=== PATIENT | male | born 1945 | race Caucasian/White ===

== ENCOUNTER 2019-04-06 12:21 | Inpatient (IN) | payer OTHER, MEDICARE ==
[~2019-04-06] VITALS: Ht 172.7 cm; Wt 70.8 kg
[~2019-04-06 12:21] MED LIST: AMLO10 PO; ATOR10 PO; BETA.05TO TOP; CALCPOTTC TOP; CHLO25B PO; CHOLECALCIFEROL PO; CLON1 PO; Coumadin5 MG PO; DILT120 PO; ERGO400 PO; Elidel30 GM; FAMC500 PO; FISH1000 PO; HYDACE5 PO; HYOS.125 SL; K-Dur 20 meq T20 MEQ PO; LANOXIN125 MCG PO; LEVSOD25 PO; LOSA50 PO; METO50ER PO; MULVITMIND PO; OMEP20ER PO; PIME1CR TOP; POLY17UD PO; POTA8 PO; SERT50 PO; SIMV10 PO; SKIEMOTC1 TOP; TRAM50 PO; UREATC TOP; [UNRECOGNIZED DRUG - OTHER] TP
[2019-04-06 13:42] LABS: BASOPHILS ABSOLUTE AUTO 0.09 K/mm3 (0.00-0.23); BASOPHILS PERCENT AUTO 1 % (0-2); EOSINOPHILS ABSOLUTE AUTO 0.32 K/mm3 (0.00-0.68); EOSINOPHILS PERCENT AUTO 3 % (0-6); Hematocrit 36.6 % (37.0-53.0); Hemoglobin 12.1 g/dL (13.5-17.5); IMMATURE GRAN ABSOLUTE AUTO 0.09 K/mm3 (0.00-0.10); IMMATURE GRAN PERCENT AUTO 1 % (0-1); LYMPHOCYTES ABSOLUTE AUTO 1.69 K/mm3 (0.84-5.20); LYMPHOCYTES PERCENT AUTO 15 % (21-46); MONOCYTES ABSOLUTE AUTO 1.02 K/mm3 (0.16-1.47); MONOCYTES PERCENT AUTO 9 % (4-13); Mean Corpuscular HGB 30.3 pg (26.0-34.0); Mean Corpuscular HGB Conc 33.1 g/dL (31.5-36.5); Mean Corpuscular Volume 92 fL (80-100); Mean Platelet Volume 10.2 fL (9.1-12.4); NEUTROPHILS ABSOLUTE AUTO 8.03 K/mm3 (1.96-9.15); NEUTROPHILS PERCENT AUTO 72 % (41-73); Platelet Count 314 K/mm3 (150-400); RDW Coefficient Variation 14.6 % (11.7-14.2); RDW Standard Deviation 48.6 fL (35.1-46.3); White Blood Cell Count 11.24 K/mm3 (4.00-11.30)
[2019-04-06 14:03] LABS: Alanine Aminotransfer (ALT/SGP 26 U/L (12-78); Albumin, Blood 3.5 g/dL (3.4-5.0); Albumin/Globulin Ratio 0.9 (0.8-1.8); Alk Phos 56 U/L (50-136); Anion Gap 5 mmol/L (6-16); Aspartate Aminotrans (AST/SGOT 18 U/L (12-37); Bilirubin, Total 0.3 mg/dL (0.1-1.0); Blood Urea Nitrogen 20 mg/dL (8-24); Bun/Creatinine Ratio 25.2 (12.0-20.0); CO2, Blood 28 mmol/L (21-32); Calcium, Blood 8.6 mg/dL (8.5-10.1); Chloride, Blood 105 mmol/L (98-108); Creatinine, Blood 0.79 mg/dL (0.60-1.20); Globulin, Blood 3.7 g/dL (2.2-4.0); Glomerular Filtration Rate >60 (60-); Glucose, Blood 136 mg/dL (70-99); International Normalized Ratio 2.3; Potassium, Blood 3.6 mmol/L (3.5-5.5); Prothrombin Time Results 22.6 Sec (9.7-11.5); Sodium, Blood 138 mmol/L (136-145); Total Protein, Blood 7.2 g/dL (6.4-8.2)
[2019-04-06] MEDS ORDERED: MELA3 PO (15:56)
[2019-04-06] MEDS ORDERED: DULO30 PO (15:57)
[2019-04-06] MEDS ORDERED: COSENTYX P150 MG/1 M SC (15:58)
--- NOTE | 2019-04-06 17:30 | NUR ---
PT ARRIVAL. PT ARRIVED ON UNIT APROX 0730, PT IS A&Ox4 AND NORMALLY IND AT HOME. PT WAS ADMITTED FOR BLOODY STOOLS. PT C/O BEING LIGHTHEADED/DIZZY WITH MOVEMENT, PT ALSO BECOMES PALE AND DIAPHORETIC. PT'S VS STABLE AT ADMIT AT 115/60, HR 83 RR 18. PT DENIES ABD PAIN. DURING ADMIT ASSESSMENT PT STATED HE HAD AN "ACCIDENT" BEDPAN WAS PLACED UNDER PT, PT PASSED 600MLS OF BLOOD W/SOME CLOTS. GI PROVIDER WAS NOTIFIED AND CAME TO SEE THE PT. PT CAN HAVE CLEAR LIQUID DIET AND PROVIDER WILL REASSESS PT'S BLEEDING TOMORROW. PT'S AT THE BEDSIDE. CALL LIGHT IN REACH, BED IS LOCKED AND LOW WILL CONTINUE TO MONITOR UNTIL REPORT IS GIVEN TO ONCOMING RN.
[2019-04-06 21:10] LABS: Hematocrit 26.3 % (37.0-53.0)
--- NOTE | 2019-04-06 22:12 | NUR ---
complained of dizzyness, 45degrees hob bp was 82/48, called dr after lowering hob and making sure comfortable, ordered bolus ns and stat h+h, after 1000 ns lying bp was 111/86, stated he was feeling better and looking forward to going to sleep, legs were feeling better, will continue to monitor and treat as appropriate, denies pain and dizzyness
[2019-04-07 04:27] LABS: BASOPHILS ABSOLUTE AUTO 0.02 K/mm3 (0.00-0.23); BASOPHILS PERCENT AUTO 0 % (0-2); EOSINOPHILS ABSOLUTE AUTO 0.03 K/mm3 (0.00-0.68); EOSINOPHILS PERCENT AUTO 0 % (0-6); IMMATURE GRAN PERCENT AUTO 1 % (0-1); LYMPHOCYTES ABSOLUTE AUTO 1.83 K/mm3 (0.84-5.20); LYMPHOCYTES PERCENT AUTO 23 % (21-46); MONOCYTES ABSOLUTE AUTO 0.71 K/mm3 (0.16-1.47); MONOCYTES PERCENT AUTO 9 % (4-13); Mean Corpuscular HGB 30.4 pg (26.0-34.0); Mean Corpuscular HGB Conc 33.3 g/dL (31.5-36.5); Mean Corpuscular Volume 91 fL (80-100); NEUTROPHILS ABSOLUTE AUTO 5.34 K/mm3 (1.96-9.15); NEUTROPHILS PERCENT AUTO 67 % (41-73); Platelet Count 186 K/mm3 (150-400); RDW Coefficient Variation 14.6 % (11.7-14.2); Red Blood Cell Count 1.84 M/mm3 (4.30-5.90); White Blood Cell Count 8.03 K/mm3 (4.00-11.30)
[2019-04-07 04:32] LABS: Hematocrit 16.8 % (37.0-53.0); Hemoglobin 5.6 g/dL (13.5-17.5)
[2019-04-07 04:38] LABS: International Normalized Ratio 1.71; Prothrombin Time Results 17.3 Sec (9.7-11.5)
[2019-04-07 04:47] LABS: Anion Gap 8 mmol/L (6-16); Blood Urea Nitrogen 24 mg/dL (8-24); Bun/Creatinine Ratio 28.2 (12.0-20.0); CO2, Blood 23 mmol/L (21-32); Calcium, Blood 7.2 mg/dL (8.5-10.1); Chloride, Blood 113 mmol/L (98-108); Creatinine, Blood 0.85 mg/dL (0.60-1.20); Glomerular Filtration Rate >60 (60-); Glucose, Blood 107 mg/dL (70-99); Potassium, Blood 3.6 mmol/L (3.5-5.5); Sodium, Blood 144 mmol/L (136-145)
--- NOTE | 2019-04-07 05:15 | NUR ---
PT ARRIVES TO ICU 4 VIA BED FROM PCU. DENIES N/V, DENIES CP/PRESSURE, DENIES SOB/DYSPNEA, DENIES NUMBNESS/TINGLING, PT IS ALERT AND ORIENTED X 3. SPEAKING IN FULL SENTENCES, LUNGS ARE CLEAR THROUGHOUT, NO INCREASED WORK OF BREATHING IS NOTED AT REST, SATS ARE MAINTAINING HIGH 90S ON ROOM AIR. HRR, PRESSURE 110S SYSTOLIC, PULSES FULL X 4, SKIN IS PALE WARM AND DRY, BRISK CAP REFILL, NO EDEMA IS NOTED. ABD MILDLY DISTENDED, ACTIVE BOWEL TONES X 4, NO TENDERNESS WITH PALPATION, PT REPORTS FEELING PRESSURE "LIKE I HAVE TO FART" OTHERWISE DENIES SYMPTOMS AT THIS TIME.
--- NOTE | 2019-04-07 07:43 | NUR ---
ASSUMED CARE RECEIVED REPORT FROM NIGHT RN. PT IS ALERT AND ORIENTED TO SELF, PLACE, SITUATION AND TIME. HE HAS STABLE VITALS, WITH A MILDLY ELEVATED BP. HE HAS A UNIT OF PRBC INFUSING AT 125ML/HR; WELL 0.9NS AT 200ML/HR. BED LOW AND LOCKED. CALL LIGHT WITHIN REACH.
--- NOTE | 2019-04-07 13:45 | NUR ---
ALONSO IN ROOM DISCUSSING PLAN OF CARE WITH PATIENT, AND EDUCATING PT AND FAMILY REGARDING COLONOSCOPY, AND REASONS WHY PATIENT MAY BE BLEEDING.
[2019-04-07 15:08] LABS: BASOPHILS ABSOLUTE AUTO 0.04 K/mm3 (0.00-0.23); BASOPHILS PERCENT AUTO 1 % (0-2); EOSINOPHILS ABSOLUTE AUTO 0.06 K/mm3 (0.00-0.68); EOSINOPHILS PERCENT AUTO 1 % (0-6); Hematocrit 23.7 % (37.0-53.0); IMMATURE GRAN ABSOLUTE AUTO 0.07 K/mm3 (0.00-0.10); IMMATURE GRAN PERCENT AUTO 1 % (0-1); LYMPHOCYTES ABSOLUTE AUTO 1.58 K/mm3 (0.84-5.20); LYMPHOCYTES PERCENT AUTO 21 % (21-46); MONOCYTES ABSOLUTE AUTO 0.97 K/mm3 (0.16-1.47); MONOCYTES PERCENT AUTO 13 % (4-13); Mean Corpuscular HGB 30.4 pg (26.0-34.0); Mean Corpuscular HGB Conc 33.8 g/dL (31.5-36.5); Mean Corpuscular Volume 90 fL (80-100); Mean Platelet Volume 10.5 fL (9.1-12.4); NEUTROPHILS ABSOLUTE AUTO 4.87 K/mm3 (1.96-9.15); NEUTROPHILS PERCENT AUTO 64 % (41-73); Platelet Count 192 K/mm3 (150-400); RDW Standard Deviation 48.9 fL (35.1-46.3); Red Blood Cell Count 2.63 M/mm3 (4.30-5.90); White Blood Cell Count 7.59 K/mm3 (4.00-11.30)
[2019-04-07 15:32] LABS: Anion Gap 6 mmol/L (6-16); Blood Urea Nitrogen 17 mg/dL (8-24); CO2, Blood 25 mmol/L (21-32); Calcium, Blood 7.6 mg/dL (8.5-10.1); Chloride, Blood 114 mmol/L (98-108); Creatinine, Blood 0.71 mg/dL (0.60-1.20); Glomerular Filtration Rate >60 (60-); Glucose, Blood 99 mg/dL (70-99); Potassium, Blood 3.2 mmol/L (3.5-5.5); Sodium, Blood 145 mmol/L (136-145)
--- NOTE | 2019-04-07 17:37 | NUR ---
Spiritual Care inital note: Per admit trigger, I met with Mr. Stovall to offer spiritual encouragement and prayer. He was bewildered that a senior enterprise architect had been requested. He was pleasantly dismissive. I will remain available.
--- NOTE | 2019-04-07 18:48 | NUR ---
SHIFT SUMMARY PT HAD NO MAJOR EVENTS HAPPEN OVERNIGHT. HE RECEIVED 2 UNITS OF PACKED RBC'S, AND 1 UNIT OF FFP. HIS HGB INCREASED TO 8.0. HE IS ALERT AND ORIENTED X4, BUT CAN BE SLIGHTLY FORGETFUL, BUT THAT ALSO MAY BE RELATED TO HIM BEING [employer] [place]. HE IS CURRENTLY DRINKING 2L OF GOLYTELY (HE WILL DRINK THE REMAINING 2L TOMORROW MORNING). HIS STOOLS ARE VERY DARK RED/BLACK, LIQUID AND JELLY CONSISTENCIES. HE HAD TWO LARGE BM'S TODAY. HE HAS SCD'S ON. VITALS ARE STABLE, HES ON ROOM AIR. COLONOSCOPY IS SCHEDULED FOR TOMORROW AFTERNOON PER DR. GUPTA. BED IS LOW AND LOCKED. CALL LIGHT WITHIN REACH. PT ATE CLEAR LIQUIDS TODAY, AND HAS BEEN VOIDING FINE.
--- NOTE | 2019-04-07 20:55 | NUR ---
DIZZINESS/DIAPHORESIS: PT UP TO BSC X3 SINCE START OF SHIFT C/ TOTAL OF 1700cc LIQUID RED/MAROON STOOL OUT. PT PLACED BACK INTO BED C/ BED ALARM ON. H&H JUST DRAWN.
[2019-04-07 20:56] LABS: Hematocrit 21.8 % (37.0-53.0); Hemoglobin 7.4 g/dL (13.5-17.5)
--- NOTE | 2019-04-07 21:38 | NUR ---
START OF SHIFT: PT FORGETFUL AND GETS SELF UP TO BSC WITHOUT CALL IN RN. PT, THUS FAR, TOLERATED WELL EXCEPT FOR LAST TIME BECAME DIAPHORETIC AND DIZZY. PT VSS. PT DRUNK ALL 2L OF GOLYTELY. H&H DRAWN SHORTLY AFTER AND IS 7.4/21.8. PT PLACED BACK INTO BED C/ BED ALARM ON. PT CURRENTLY LYING ON LEFT SIDE SLEEPING. HR 94, BP 92/54 (64). CALL LIGHT WITHIN REACH (IF PT REMEMBERS TO USE), WILL CONTINUE TO MONITOR.
--- NOTE | 2019-04-07 22:55 | NUR ---
DISORIENTATION: PT AWAKENS WONDERING WHERE HE IS. PT REMAINED AWAKE AND STATED, "I JUST DON'T KNOW WHERE I AM. I'M DISORIENTED". PT REPEATING QUESTIONS, "WHERE'S MY ", "AM I AT THE [facility]?", "WAS MY WITH MY GRANDSON?". PT QUESTIONS ANSWERED AND PT REORIENTED. PT GRADUALLY REMEMBERING THAT IT'S HIS BIRTHDAY BUT NOT RECALLING EVENTS T/O THE DAY. WILL CONTINUE TO REORIENT AND MONITOR.
--- NOTE | 2019-04-08 02:28 | NUR ---
UPDATE: PT AWAKENS BUT IS MORE ORIENTED. PT AWAKENED AT APPRX 0200 AND STATED, "I KNOW WHERE I'M AT", "[facility]. I HAD TO DRINK THAT STUFF AND I'M GOING TO HAVE A GI TOMORROW". PT CURRENTY SLEEPING. VSS.
[2019-04-08 03:30] LABS: Hemoglobin 5.4 g/dL (13.5-17.5)
[2019-04-08 03:31] LABS: Hematocrit 15.7 % (37.0-53.0)
--- NOTE | 2019-04-08 04:05 | NUR ---
CRITICAL VALUE: H&H OF 5.4 & 15.[address] GARCIA. NEW ORDERS TO OBTAIN PT AND INR STAT-CALL C/ RESULTS. ORDER 2u PRBC.
[2019-04-08 04:29] LABS: International Normalized Ratio 2.12
--- NOTE | 2019-04-08 08:30 | NUR ---
ASSUMED CARE / DR GUPTA: REPORT RECEIVED FROM SHIRA Godfrey RN. ASSUMED CARE OF THIS PT AT APPROX 0700. ON ASSESSMENT, THE PT IS A&O. HE REQUESTS TO GET OOB TO USE THE BSC. UPON ATTEMPTING TO SIT PT AT BEDSIDE, COPIOUS AMNTS OF BRIGHT RED LIQUID STL POUR FROM PT's RECTUM. THE PT IS PUT BACK IN BED & CLEANED THOROUGHLY. A RECTAL TUBE HAS BEEN PLACED OUTPUT IS THIN, MORE BLOOD THAN STL. ASSESSMENT CHARTED, HYPOTENSION IMPROVING W/ BLOOD TRANSFUSION ORDERED. CALLS FROM DR GUPTA THIS AM. HE PLANS TO SCOPE THE PT AT 1200 NOW. WOULD LIKE HIM TO CONTINUE WORKING ON [employer] MUCH POSSIBLE UNTIL 0900. NPO AFTER THAT POINT. ALSO STS OKAY TO TRANSFUSE BLOOD PRODUCTS RAPIDLY IN ORDER TO HAVE TRANSFUSIONS COMPLETED BY 1000 FOR F/U LAB DRAW AT 1000. WILL CONTINUE TO MONITOR & UPDATE NEEDED.
[2019-04-08 10:51] LABS: BASOPHILS ABSOLUTE AUTO 0.04 K/mm3 (0.00-0.23); BASOPHILS PERCENT AUTO 1 % (0-2); EOSINOPHILS ABSOLUTE AUTO 0.11 K/mm3 (0.00-0.68); EOSINOPHILS PERCENT AUTO 2 % (0-6); Hematocrit 20.4 % (37.0-53.0); Hemoglobin 6.8 g/dL (13.5-17.5); IMMATURE GRAN ABSOLUTE AUTO 0.09 K/mm3 (0.00-0.10); IMMATURE GRAN PERCENT AUTO 1 % (0-1); LYMPHOCYTES ABSOLUTE AUTO 1.28 K/mm3 (0.84-5.20); LYMPHOCYTES PERCENT AUTO 18 % (21-46); MONOCYTES ABSOLUTE AUTO 0.61 K/mm3 (0.16-1.47); MONOCYTES PERCENT AUTO 8 % (4-13); Mean Corpuscular HGB 29.8 pg (26.0-34.0); Mean Corpuscular HGB Conc 33.3 g/dL (31.5-36.5); Mean Corpuscular Volume 90 fL (80-100); Mean Platelet Volume 10.4 fL (9.1-12.4); NEUTROPHILS ABSOLUTE AUTO 5.15 K/mm3 (1.96-9.15); NEUTROPHILS PERCENT AUTO 71 % (41-73); Platelet Count 116 K/mm3 (150-400); RDW Coefficient Variation 15.9 % (11.7-14.2); Red Blood Cell Count 2.28 M/mm3 (4.30-5.90); White Blood Cell Count 7.28 K/mm3 (4.00-11.30)
--- NOTE | 2019-04-08 11:57 | NUR ---
ENDOSCOPY: DAY SURGERY TEAM AT BEDSIDE TO COMPLETE PROCEDURE. WILL CONTINUE TO MONITOR & ASSIST PRN.
--- NOTE | 2019-04-08 12:11 | NUR ---
04/08/19 1211 Gal Morley History, Chart, Medications and Allergies reviewed before start of procedure.MONITOR INTACT WITH CONTINUOUS PULSE OXIMETRY AND INTERMITTENT BP.3-LEAD EKG REVIEWED WITH PHYSICIAN PRIOR TO START OF PROCEDURE.O2 VIA N/C INTACT THROUGHOUT SEDATION/PROCEDURE. PATIENT DETERMINED TO BE ASA APPROPRIATE FOR PROPOFOL SEDATION PRIOR TO START OF PROCEDURE BY DR. GUPTA.
--- NOTE | 2019-04-08 12:37 | NUR ---
UPDATE: DAY SURGERY TEAM & DR GUPTA REMAIN AT BEDSIDE. PLAN IS NOW TO DO AN UPPER ENDOSCOPY ALSO. PT's HAS BEEN NOTIFIED & PROVIDED CONSENT. WILL CONTINUE TO MONITOR & ASSIST PRN.
[2019-04-08 14:04] LABS: BASOPHILS ABSOLUTE AUTO 0.02 K/mm3 (0.00-0.23); BASOPHILS PERCENT AUTO 0 % (0-2); EOSINOPHILS ABSOLUTE AUTO 0.09 K/mm3 (0.00-0.68); EOSINOPHILS PERCENT AUTO 2 % (0-6); Hematocrit 18.4 % (37.0-53.0); Hemoglobin 6.3 g/dL (13.5-17.5); IMMATURE GRAN ABSOLUTE AUTO 0.06 K/mm3 (0.00-0.10); IMMATURE GRAN PERCENT AUTO 1 % (0-1); LYMPHOCYTES ABSOLUTE AUTO 1.42 K/mm3 (0.84-5.20); LYMPHOCYTES PERCENT AUTO 23 % (21-46); MONOCYTES PERCENT AUTO 10 % (4-13); Mean Corpuscular HGB 30.3 pg (26.0-34.0); Mean Corpuscular HGB Conc 34.2 g/dL (31.5-36.5); Mean Corpuscular Volume 89 fL (80-100); Mean Platelet Volume 10.8 fL (9.1-12.4); NEUTROPHILS ABSOLUTE AUTO 3.93 K/mm3 (1.96-9.15); NEUTROPHILS PERCENT AUTO 64 % (41-73); Platelet Count 108 K/mm3 (150-400); RDW Coefficient Variation 16.3 % (11.7-14.2); RDW Standard Deviation 52.2 fL (35.1-46.3); Red Blood Cell Count 2.08 M/mm3 (4.30-5.90); White Blood Cell Count 6.12 K/mm3 (4.00-11.30)
[2019-04-08 14:26] LABS: Anion Gap 6 mmol/L (6-16); Blood Urea Nitrogen 11 mg/dL (8-24); Bun/Creatinine Ratio 14.7 (12.0-20.0); CO2, Blood 24 mmol/L (21-32); Calcium, Blood 6.8 mg/dL (8.5-10.1); Chloride, Blood 115 mmol/L (98-108); Creatinine, Blood 0.75 mg/dL (0.60-1.20); Glomerular Filtration Rate >60 (60-); Glucose, Blood 107 mg/dL (70-99); Potassium, Blood 3.3 mmol/L (3.5-5.5); Sodium, Blood 145 mmol/L (136-145)
--- NOTE | 2019-04-08 15:05 | NUR ---
DR ORONA: PROVIDER AT BEDSIDE TO SEE PT. STS HE WILL BE GOING TO ELECTRICAL TRANSMISSION ENGINEER IN APPROX 1 HR. PT HAS BEEN CONSENTED & PT's IS AT BEDSIDE DURING THIS TIME. WILL CONTINUE TO MONITOR & UPDATE NEEDED.
--- NOTE | 2019-04-08 17:58 | NUR ---
RETURN FROM [facility] / DR WILD: PT BACK TO ICU-04 FROM [facility] AT APPROX 1710. PT HAS SHEATH IN PLACE TO R FEMORAL ARTERY, PRESSURE BAG ATTACHED & OKAY TO USE PRN FOR ART LINE PER DR ORONA. AREA IS FREE OF BLEEDING, BRUISING OR HEMATOMA FORMATION. SOFT, NONTENDER TO PALPATION & GOOD CAP REFILL TO DISTAL EXTREMITIES/DIGITS. PLAN IS FOR THE PT TO RETURN TO [facility] IN AM IF BLEEDING REOCCURS TONIGHT. CALL TO DR WILD, PT IS HAVING A DIFFICULT TIME LAYING STILL, HE STS HE IS FEELING ANXIOUS & HAS RESTLESS LEGS AT BASELINE. ORDERS FOR ONE TIME DOSE OF PO ATIVAN HAVE BEEN PLACED. WILL CONTINUE TO MONITOR & UPDATE NEEDED.
--- NOTE | 2019-04-08 18:00 | NUR ---
SHIFT SUMMARY: NO ACUTE CHANGES SINCE PRIOR UPDATES. PT REMAINS A&O. HE IS RESTLESS BUT REDIRECTABLE. LS ARE DIM T/O, PT ON RA W/ O2 SATS > 92%. MONITOR SHOWS SR-ST W/ HR 90-120s, PAC/PVCs NOTED W/ INCREASED HR. BP MORE STABLE THIS AFTERNOON W/ LESS HYPOTENSION NOTED. RECTAL TUBE REMAINS PATENT/ DRAINING SMALL AMNTS OF BRIGHT RED LIQUID. PT VOIDS USING URINAL PRN. SKIN OVERALL CDI. R FEMORAL SITE REMAINS WNL, DRESSING CDI. WILL CONTINUE TO MONITOR & REPORT OFF TO ONCOMING RN.
--- NOTE | 2019-04-08 20:00 | NUR ---
ASSUMED CARE OF PT AT 1915. REPORT RECEIVED AT BEDSIDE. RIGHT GROIN FEMORAL ACCESS SITE WITH SHEATH CHECKED AND VERIFIED. NO HEMATOMA OR OOZING NOTED AT SITE. PT ALERT AND ORIENTED, ALTHOUGH DEMONSTRATES A VERY SHORT TERM MEMORY DEFICIT. NEEDS TO BE REMINDED NOT TO MOVE ABOUT IN BED, AND TO KEEP HIS RIGHT LOWER EXTREMITY STRAIGHT AND TO NOT LIF HI HEAD OFF BED. EXPLANATION TO PATIENT AND TO PT'S ON RESTRICTION SECONDARY TO RIGHT GROIN SITE. PT HAS COMPLETED PRBC'S TRANSFUSION. WILL RECEIVE ADDITIONAL UNIT. WILL REVIEW CHART AND PLAN OF CARE FOR THIS PT.
--- NOTE | 2019-04-08 22:30 | NUR ---
POWERGLIDE PLACED TO LEFT UPPER ARM. 18G/8CM. PT TOLERATES THIS WELL. HAVE OPTED TO PLACE SOFT RESTRAINT TO LOWER RIGHT EXTREMITY TO HELP PT REMEMBER TO KEEP LEG STRAIGHT. PT DOES FORGET RESTRICTIONS AND TRIES TO TURN HIMSELF IN BED. PT NEED FREQUENT MONITORING TO HELP AVOID ANY COMPLICATIONS OF FEMORAL ACCESS. WILL CONTINUE TO MONITOR.
--- NOTE | 2019-04-09 02:00 | NUR ---
PT NEEDED TO HAVE NICOLAS VEST PLACED SECONDARY TO PT SITTING UP IN BED, AND TRYING TO TURN HIMSELF OFTEN. FREQUENT REMINDERS OF FEMORAL SHEATH AND NECESSARY RESTRICTIONS HAVE BEEN DONE AND UNSUCCESSFUL. PT STILL NEEDING CLOSE MONITORING. SEVERAL INTERESTING OBSERVATIONS. WHEN PT ASLEEP, HE RHYTHMICALLY WILL PULL HIS RIGHT LEG UPWARDS, BENDING AT THE KNEE. THIS AT APPROX 15 SECOND INTERVALS. RIGHT GROIN SITE REMAINS INTACT WITHOUT BLEEDING OR HEMATOMA. ALSO, WHEN PT ASLEEP IT WAS OBSERVED THAT PT HAD A SLEEP APNEIC TYPE RESPIRATORY PATTERN. HIS 02 SATURATIONS WOULD DIP INTO MID 80 %'S. DURING THIS, PT WOULD AWAKEN, AND WAS FORGETFUL OF WHERE HE WAS, AND RESTRICTIONS. ORDER RECEIVED FOR CPAP. WHILE WEARING CPAP PT WAS ABLE TO SLEEP WITHOUT BEING AWAKEN FREQUENTLY DURING APNEIC PERIOD. WILL CONTINUE TO MONITOR.
[2019-04-09 03:49] LABS: BASOPHILS ABSOLUTE AUTO 0.05 K/mm3 (0.00-0.23); BASOPHILS PERCENT AUTO 1 % (0-2); EOSINOPHILS ABSOLUTE AUTO 0.44 K/mm3 (0.00-0.68); EOSINOPHILS PERCENT AUTO 6 % (0-6); Hematocrit 23.3 % (37.0-53.0); Hemoglobin 7.9 g/dL (13.5-17.5); IMMATURE GRAN ABSOLUTE AUTO 0.06 K/mm3 (0.00-0.10); IMMATURE GRAN PERCENT AUTO 1 % (0-1); LYMPHOCYTES ABSOLUTE AUTO 1.77 K/mm3 (0.84-5.20); LYMPHOCYTES PERCENT AUTO 24 % (21-46); MONOCYTES PERCENT AUTO 11 % (4-13); Mean Corpuscular HGB 30.2 pg (26.0-34.0); Mean Corpuscular HGB Conc 33.9 g/dL (31.5-36.5); Mean Corpuscular Volume 89 fL (80-100); Mean Platelet Volume 10.6 fL (9.1-12.4); NEUTROPHILS ABSOLUTE AUTO 4.26 K/mm3 (1.96-9.15); NEUTROPHILS PERCENT AUTO 58 % (41-73); Platelet Count 107 K/mm3 (150-400); RDW Coefficient Variation 15.8 % (11.7-14.2); RDW Standard Deviation 50.2 fL (35.1-46.3); Red Blood Cell Count 2.62 M/mm3 (4.30-5.90); White Blood Cell Count 7.38 K/mm3 (4.00-11.30)
[2019-04-09 04:11] LABS: Anion Gap 5 mmol/L (6-16); Blood Urea Nitrogen 9 mg/dL (8-24); Bun/Creatinine Ratio 11.1 (12.0-20.0); CO2, Blood 26 mmol/L (21-32); Chloride, Blood 114 mmol/L (98-108); Creatinine, Blood 0.81 mg/dL (0.60-1.20); Glomerular Filtration Rate >60 (60-); Glucose, Blood 94 mg/dL (70-99); Potassium, Blood 3.3 mmol/L (3.5-5.5); Sodium, Blood 145 mmol/L (136-145)
--- NOTE | 2019-04-09 07:45 | NUR ---
INITIAL ASSESSMENT PATIENT ALERT AND ORIENTED EXCEPT TO PLACE AND WHY HE IS HERE. PATIENT FORGETFUL AT TIMES. PATIENT WEAK BUT ABLE TO MOVE ALL EXTREMITIES. SHEATH IN PLACE TO R FEMORAL SITE. SITE APPEARS WNL- NO BLEEDING, BRUISING, HEMATOMA NOTED. PATIENT HAS TO BE REMINDED THAT HE CANNOT MOVE HIS R LEG. PATIENT DENIES PAIN. PATIENT AFEBRILE. PATIENT SATTING 90% AND GREATER ON RA. LUNGS CLEAR IN UPPER LOBES AND DIMINISHED IN LOWER LOBES. PATIENT DENIES COUGH. PATIENT IN SR WITH PACS. HR 70S TO 90S. BP STABLE. PULSES STRONG. ABDOMEN MILDLY DISTENDED, SOFT, NONTENDER, WITH HYPERACTIVE BS. NOC SHIFT REPORTED NO STOOL OUT LAST NIGHT. WNL. IVS FLUSHED AND SALINE LOCKED. BED LOW, CALL LIGHT IN REACH. WILL CONTINUE TO MONITOR PATIENT FREQUENTLY THROUGHOUT SHIFT.
--- NOTE | 2019-04-09 08:09 | NUR ---
DR. GUPTA IN TO SEE PATIENT.
--- NOTE | 2019-04-09 08:45 | NUR ---
UPDATED DR. ORONA ON PATIENT STATUS. INFORMED THAT PATIENT HAD NO BLEEDING OVERNIGHT. STATED TO PULL THE SHEATH. STATED NO LABS ARE NEEDED PRIOR TO PULLING. NO OTHER ORDERS OBTAINED AT THIS TIME.
--- NOTE | 2019-04-09 10:17 | NUR ---
SHEATH REMOVED WITH STERILE PROCEDURE AT 0945. PATIENT PRE-MEDICATED WITH PRN FENTANYL. DEANNE DRESSING PLACED AND MANUAL PRESSURE APPLIED FOR 20 MINUTES. SITE SOFT, NO BLEEDING, BRUISING, HEMATOMA NOTED. TEGADERM APPLIED. VITAL SIGNS REMAIN STABLE. NO PATIENT COMPLAINTS AT THIS TIME. WILL CONTINUE TO MONITOR.
--- NOTE | 2019-04-09 10:55 | NUR ---
UPDATED DR. WILD ON PATIENT STATUS. INFORMED THAT PATIENT WAS HAVING PERIODS OF SLEEP APNEA AND DESATTING DOWN TO THE LOW 80S PER NOC SHIFT RN AND WAS PLACED ON CPAP. INFORMED THAT WHEN PATIENT IS AWAKE THAT HE IS SATTING 90% AND GREATER ON RA. PATIENT WOULD TAKE CPAP OFF AFTER A WHILE AND THEN BE REMINDED THAT HE NEEDED TO WEAR IN AGAIN. INFORMED THAT HEMOGLOBIN 7.9 BUT MUCH IMPROVED FROM YESTERDAY. INFORMED THAT POTASSIUM 3.3 BUT THAT HE RECEIVED 20 MEQ KDUR THIS AM. NO ORDERS GIVEN TO NURSE AT THIS TIME.
--- NOTE | 2019-04-09 12:04 | NUR ---
PATIENT RESTING QUIETLY IN BED, CHATTING WITH VISITORS. NO COMPLAINTS. PATIENT AFEBRILE. VITAL SIGNS STABLE. GROIN SITE STABLE- SITE SOFT, NO BLEEDING, BRUISING, HEMATOMA NOTED. BLOOD SUGAR OF 101- NO COVERAGE NEEDED. NO RECTAL BLEEDING NOTED. PATIENT ENCOURAGED TO DRINK ENSURE OFF OF LUNCH TRAY. PATIENT STATED THAT HE DOES NOT HAVE MUCH OF AN APPETITE WHEN HE IS IN THE HOSPITAL. NO OTHER ACUTE CHANGES TO NOTE ON AT THIS TIME. WILL CONTINUE TO MONITOR.
[2019-04-09 13:32] LABS: BASOPHILS ABSOLUTE AUTO 0.03 K/mm3 (0.00-0.23); BASOPHILS PERCENT AUTO 0 % (0-2); EOSINOPHILS ABSOLUTE AUTO 0.46 K/mm3 (0.00-0.68); EOSINOPHILS PERCENT AUTO 7 % (0-6); Hematocrit 23.5 % (37.0-53.0); IMMATURE GRAN ABSOLUTE AUTO 0.08 K/mm3 (0.00-0.10); IMMATURE GRAN PERCENT AUTO 1 % (0-1); LYMPHOCYTES PERCENT AUTO 19 % (21-46); MONOCYTES ABSOLUTE AUTO 0.79 K/mm3 (0.16-1.47); MONOCYTES PERCENT AUTO 12 % (4-13); Mean Corpuscular HGB 29.6 pg (26.0-34.0); Mean Corpuscular Volume 87 fL (80-100); Mean Platelet Volume 10.8 fL (9.1-12.4); NEUTROPHILS ABSOLUTE AUTO 4.09 K/mm3 (1.96-9.15); NEUTROPHILS PERCENT AUTO 61 % (41-73); Platelet Count 125 K/mm3 (150-400); RDW Coefficient Variation 15.9 % (11.7-14.2); RDW Standard Deviation 49.1 fL (35.1-46.3); White Blood Cell Count 6.75 K/mm3 (4.00-11.30)
--- NOTE | 2019-04-09 13:54 | NUR ---
OCCUPATIONAL THERAPY IN WORKING WITH PATIENT.
[2019-04-09 13:58] LABS: International Normalized Ratio 1.57
[2019-04-09 14:00] LABS: Anion Gap 8 mmol/L (6-16); Blood Urea Nitrogen 9 mg/dL (8-24); Bun/Creatinine Ratio 13.3 (12.0-20.0); CO2, Blood 23 mmol/L (21-32); Calcium, Blood 7.5 mg/dL (8.5-10.1); Chloride, Blood 111 mmol/L (98-108); Creatinine, Blood 0.68 mg/dL (0.60-1.20); Glomerular Filtration Rate >60 (60-); Glucose, Blood 171 mg/dL (70-99); Potassium, Blood 3.6 mmol/L (3.5-5.5); Sodium, Blood 142 mmol/L (136-145)
--- NOTE | 2019-04-09 16:11 | NUR ---
PATIENT RESTING QUIETLY IN CHAIR. NO COMPLAINTS. AFEBRILE. VITAL SIGNS STABLE. GROIN SITE REMAINS STABLE- SOFT TO PALPATION, NO BLEEDING, BRUISING, HEMATOMA NOTED. BS OF 86. PATIENT HAS NO COMPLAINTS AT THIS TIME. NO OTHER ACUTE CHANGES TO NOTE ON. WILL CONTINUE TO MONITOR.
--- NOTE | 2019-04-09 16:55 | NUR ---
PATIENT HAD MEDIUM AMOUNT OF BRIGHT RED BLOOD LEAK OUT FROM RECTUM, AROUND RECTAL TUBE. DR. WILD CALLED AND INFORMED. STATED TO ORDER H&H FOR IN [address] TO CALL DR[address] GUPTA AND LET HIM KNOW. DR. GUPTA CALLED AND INFORMED. STATED THAT PATIENT HAD LEFTOVER BLOOD IN COLON, SO COULD JUST BE WHAT WAS LEFT. STATED TO MONITOR BP AND CONTINUE TO ASSESS FOR ONGOING RECTAL BLEEDING. 6 TO 8 CC OF WATER INSTILLED INTO RECTAL TUBE TO TRY AND HELP WITH LEAKING. INFORMED. PATIENT CLEANED UP AND BACK IN BED. WILL CONTINUE TO MONITOR.
--- NOTE | 2019-04-09 18:25 | NUR ---
SHIFT SUMMARY PATIENT REMAINED MOSTLY ALERT AND ORIENTED. FORGETFUL AT TIMES. PATIENT HAD NO COMPLAINTS OF PAIN. PATIENT REMAINED AFEBRILE. PATIENT REMAINED WEAK BUT ABLE TO MOVE ALL EXTREMITIES. PATIENT REMAINED SATTING 90% AND GREATER ON RA. PATIENT REMAINED IN SR WITH PACS, HR 70S TO 90S. BP REMAINED STABLE. ABDOMEN REMAINED MILDLY DISTENDED, NONTENDER, SOFT, WITH HYPERACTIVE BS. RECTAL TUBE DC'D THIS SHIFT CONTINUED TO LEAK. DEFLATING RECTAL CUFF, 450 MLS OF BRIGHT BLOOD FLOWED INTO RECTAL TUBE. IN ADDITION, PATIENT HAD A MEDIUM AND THEN A LARGE INCONTINENT BRIGHT RED, LIQUID STOOL. DR. WILD AND DR. GUPTA INFORMED. STATED TO CHECK AN H&H 6 HOURS FROM FIRST BLEED AND CONTINUE TO MONITOR BP AND FOR CONTINUING BLEEDING. DR. GUPTA STATED THAT THERE WAS QUITE A BIT OF BLOOD REMAINING IN COLON ON PREVIOUS IMAGE. PATIENT HAD POOR APPETITE BUT STATES THAT HE DOES WHENEVER HE IS IN THE HOSPITAL. WNL. PATIENT BEING ASSISTED WITH USE OF URINAL. R FEM SHEATH REMOVED THIS SHIFT. SITE REMAINS WNL- SOFT TO PALPATION, NO BLEEDING, BRUISING, HEMATOMA NOTED. IVS SALINE LOCKED. PT/OT WORKED WITH PATIENT TODAY. PATIENT RECEIVED 40 MEQ OF KCL THIS AM FOR POTASSIUM LEVEL OF 3.3. PATIENT HAS NO COMPLAINTS OF THIS TIME. BED LOW, CALL LIGHT IN REACH. REPORT WILL BE GIVEN TO ONCOMING SUPERVISOR DIAGNOSTIC NURSE SHORTLY.
[2019-04-09 23:07] LABS: Hematocrit 19.3 % (37.0-53.0); Hemoglobin 6.6 g/dL (13.5-17.5)
[2019-04-10 04:14] LABS: BASOPHILS ABSOLUTE AUTO 0.04 K/mm3 (0.00-0.23); BASOPHILS PERCENT AUTO 1 % (0-2); EOSINOPHILS ABSOLUTE AUTO 0.58 K/mm3 (0.00-0.68); EOSINOPHILS PERCENT AUTO 7 % (0-6); Hematocrit 23.5 % (37.0-53.0); Hemoglobin 8.2 g/dL (13.5-17.5); IMMATURE GRAN ABSOLUTE AUTO 0.15 K/mm3 (0.00-0.10); IMMATURE GRAN PERCENT AUTO 2 % (0-1); LYMPHOCYTES ABSOLUTE AUTO 2.13 K/mm3 (0.84-5.20); LYMPHOCYTES PERCENT AUTO 26 % (21-46); MONOCYTES ABSOLUTE AUTO 0.93 K/mm3 (0.16-1.47); MONOCYTES PERCENT AUTO 11 % (4-13); Mean Corpuscular HGB 30.8 pg (26.0-34.0); Mean Corpuscular HGB Conc 34.9 g/dL (31.5-36.5); Mean Corpuscular Volume 88 fL (80-100); NEUTROPHILS ABSOLUTE AUTO 4.48 K/mm3 (1.96-9.15); NEUTROPHILS PERCENT AUTO 54 % (41-73); RDW Coefficient Variation 15.2 % (11.7-14.2); RDW Standard Deviation 48.3 fL (35.1-46.3); Red Blood Cell Count 2.66 M/mm3 (4.30-5.90); White Blood Cell Count 8.31 K/mm3 (4.00-11.30)
[2019-04-10 04:23] LABS: Mean Platelet Volume 11.1 fL (9.1-12.4); Platelet Count 92 K/mm3 (150-400)
[2019-04-10 04:32] LABS: Anion Gap 5 mmol/L (6-16); Blood Urea Nitrogen 11 mg/dL (8-24); Bun/Creatinine Ratio 11.9 (12.0-20.0); CO2, Blood 25 mmol/L (21-32); Calcium, Blood 7.4 mg/dL (8.5-10.1); Chloride, Blood 113 mmol/L (98-108); Creatinine, Blood 0.93 mg/dL (0.60-1.20); Glomerular Filtration Rate >60 (60-); Glucose, Blood 89 mg/dL (70-99); Potassium, Blood 3.5 mmol/L (3.5-5.5); Sodium, Blood 143 mmol/L (136-145)
--- NOTE | 2019-04-10 05:51 | NUR ---
SHIFT SUMMARY PT DID NOT SLEEP WELL DESPITE MELATONIN, X2 CUPS OF CAMOMILE TEA. WILL ASK DAY SHIFT FOR PRN SLEEP AID. HGB CAME BACK 8.2 THIS AM AFTER X1 UNIT GIVEN AROUND MIDNIGHT TONIGHT. ONLY 150 ML DARK RED LIQUID STOOL NOTED IN LAST 12 HOURS. PT . DOES COMPLAIN OF CONSTANT RUMBLING STOMACH, DENIES PAIN, NAUSEA, ANY DISCOMORT, ONLY INCREASED MOTILITY. VSS. NO COMPLAINTS OF PAIN. WILL CONTINUE TO MONITOR.
--- NOTE | 2019-04-10 08:30 | NUR ---
ASSESSMENT- PT AWAKE, ALERT, COOPERATIVE. CONFUSED REGARDING REASON FOR HOSPITALIZATION-STATES DOESN'T UNDERSTAND TESTS THAT HAVE BEEN DONE. EXPLAINED PLAN OF CARE, QUESTIONS ANSWERED. EMOTIONAL REASSURANCE GIVEN FOR ANXIOUSNESS. ASSISTED TO BEDSIDE COMMODE, STATES SLIGHT DIZZINESS WITH MOVEMENT, TOLERATED WELL. NSR WITH PACS. BP STABLE. COLOR NORMAL, SKIN W/D. PASSED LIQUID MAROON STOOL-ESTIMATED 50 CC. AM CARE DONE, BRUSHED OWN TEETH. STATES NO NAUSEA BUT NO APPETITE FOR DAYS. LEFT UPPER ARM POWER GLIDE DI, RIGHT HAND IV DI. HANDS SWOLLEN. VOIDING PER URINAL. ABLE TO USE CALL LIGHT. FALL PRECAUTIONS. VISITOR AT BEDSIDE. DR GUPTA CALLED-UPDATED. PLANS FOR NUCLEAR MED STUDY TODAY. PER NUC MED-ESTIMATED TIME 1430. NO PREP FOR TEST
--- NOTE | 2019-04-10 10:10 | NUR ---
HAS BEEN VISITING WITH FAMILY, UP TO AMBULATE AROUND BED AND TO CHAIR WITH THERAPIST. TOLERATED WELL. HR BRIEFLY UP TO 110'S WITH ACTIVITY, THEN 80'S. NEEDS FREQUENT REMINDERS OF PLAN OF CARE. VSS
--- NOTE | 2019-04-10 11:38 | NUR ---
PT SITTING UP IN CHAIR, VSS. NO S/S BLEEDING. AWAITING GI STUDY. FAMILY AT BEDSIDE
[2019-04-10 13:17] LABS: BASOPHILS ABSOLUTE AUTO 0.04 K/mm3 (0.00-0.23); BASOPHILS PERCENT AUTO 1 % (0-2); EOSINOPHILS ABSOLUTE AUTO 0.46 K/mm3 (0.00-0.68); EOSINOPHILS PERCENT AUTO 7 % (0-6); Hematocrit 24.6 % (37.0-53.0); Hemoglobin 8.4 g/dL (13.5-17.5); IMMATURE GRAN ABSOLUTE AUTO 0.09 K/mm3 (0.00-0.10); IMMATURE GRAN PERCENT AUTO 1 % (0-1); LYMPHOCYTES ABSOLUTE AUTO 1.28 K/mm3 (0.84-5.20); LYMPHOCYTES PERCENT AUTO 18 % (21-46); MONOCYTES ABSOLUTE AUTO 0.77 K/mm3 (0.16-1.47); MONOCYTES PERCENT AUTO 11 % (4-13); Mean Corpuscular HGB Conc 34.1 g/dL (31.5-36.5); Mean Corpuscular Volume 88 fL (80-100); Mean Platelet Volume 10.6 fL (9.1-12.4); NEUTROPHILS ABSOLUTE AUTO 4.45 K/mm3 (1.96-9.15); NEUTROPHILS PERCENT AUTO 63 % (41-73); Platelet Count 163 K/mm3 (150-400); RDW Coefficient Variation 15.7 % (11.7-14.2); RDW Standard Deviation 48.8 fL (35.1-46.3); White Blood Cell Count 7.09 K/mm3 (4.00-11.30)
[2019-04-10 13:30] LABS: International Normalized Ratio 1.41; Prothrombin Time Results 14.5 Sec (9.7-11.5)
--- NOTE | 2019-04-10 13:31 | NUR ---
DR. GUPTA HERE-DISCUSSED PLAN WITH PT AND FAMILY. PT WITH STABLE VS. PCU STATUS. CHANGED TO TELEMONITOR. TO NUCLEAR MED.
[2019-04-10 13:37] LABS: Anion Gap 8 mmol/L (6-16); Blood Urea Nitrogen 10 mg/dL (8-24); Bun/Creatinine Ratio 11.9 (12.0-20.0); CO2, Blood 23 mmol/L (21-32); Calcium, Blood 7.7 mg/dL (8.5-10.1); Chloride, Blood 111 mmol/L (98-108); Creatinine, Blood 0.84 mg/dL (0.60-1.20); Glomerular Filtration Rate >60 (60-); Glucose, Blood 103 mg/dL (70-99); Potassium, Blood 3.8 mmol/L (3.5-5.5); Sodium, Blood 142 mmol/L (136-145)
--- NOTE | 2019-04-10 14:23 | NUR ---
REPORT TO MIKE PFEIFFER. PT TO TRANSFER TO PCU 8 AFTER NUC MED STUDY. FAMILY UPDATED.
--- NOTE | 2019-04-10 19:09 | NUR ---
pt sitting in chair, his wanted him to have a shower, but pt states his head feels a bit foggy, so will wait until morning. he complains of neck pain, kpad was given, and tylenol. no further changes, call light in reach.
[2019-04-11 04:12] LABS: BASOPHILS ABSOLUTE AUTO 0.03 K/mm3 (0.00-0.23); BASOPHILS PERCENT AUTO 1 % (0-2); EOSINOPHILS ABSOLUTE AUTO 0.63 K/mm3 (0.00-0.68); EOSINOPHILS PERCENT AUTO 10 % (0-6); Hematocrit 22.9 % (37.0-53.0); Hemoglobin 7.8 g/dL (13.5-17.5); IMMATURE GRAN ABSOLUTE AUTO 0.09 K/mm3 (0.00-0.10); IMMATURE GRAN PERCENT AUTO 1 % (0-1); LYMPHOCYTES ABSOLUTE AUTO 1.36 K/mm3 (0.84-5.20); LYMPHOCYTES PERCENT AUTO 21 % (21-46); MONOCYTES ABSOLUTE AUTO 0.78 K/mm3 (0.16-1.47); MONOCYTES PERCENT AUTO 12 % (4-13); Mean Corpuscular HGB 30.8 pg (26.0-34.0); Mean Corpuscular HGB Conc 34.1 g/dL (31.5-36.5); Mean Platelet Volume 10.3 fL (9.1-12.4); NEUTROPHILS ABSOLUTE AUTO 3.69 K/mm3 (1.96-9.15); NEUTROPHILS PERCENT AUTO 56 % (41-73); Platelet Count 175 K/mm3 (150-400); RDW Coefficient Variation 15.7 % (11.7-14.2); RDW Standard Deviation 49.5 fL (35.1-46.3); Red Blood Cell Count 2.53 M/mm3 (4.30-5.90); White Blood Cell Count 6.58 K/mm3 (4.00-11.30)
[2019-04-11 04:13] LABS: Mean Corpuscular Volume 91 fL (80-100)
[2019-04-11 04:29] LABS: Anion Gap 7 mmol/L (6-16); Blood Urea Nitrogen 10 mg/dL (8-24); CO2, Blood 24 mmol/L (21-32); Calcium, Blood 7.7 mg/dL (8.5-10.1); Chloride, Blood 111 mmol/L (98-108); Creatinine, Blood 0.91 mg/dL (0.60-1.20); Glomerular Filtration Rate >60 (60-); Glucose, Blood 101 mg/dL (70-99); Potassium, Blood 3.5 mmol/L (3.5-5.5); Sodium, Blood 142 mmol/L (136-145)
--- NOTE | 2019-04-11 05:32 | NUR ---
SHIFT SUMMARY PT RESTING IN ROOM COMFORTABLY AT THIS TIME. PT HAS HAD MULTIPLE EPISODES OF CONFUSION W/ ANXIETY T/O NIGHT. PT REQUIRED REDIRECTION ABOUT BEING IN HOSPITAL AND ABOUT PT STATUS. ONCE PT WAS RE-EDUCATED ABOUT THEIR STATUS AND HAD THERAPEUTIC COMMUNICATION, PT CALMED AND WAS ABLE TO SETTLE IN TO REST IN ROOM. PT DID HAVE ONE EPISODE OF BLODDY STOOL BUT FLUSHED TOILET BEFORE STAFF COULD VISUALIZE STOOL, PT DID REPORT TO ABRASIVE SAWYER THAT WAS IN ROOM THAT THE STOOL LOOKED DARK AND "THICK". PER DAY SHIFT RN REPORT THIS COINCIDED WITH REPORTS OF OLDER BLOOD BEING PASSED THROUGH DIGESTIVE SYSTEM. PT DENIED ANY BRIGHT RED BLOOD OR MAROON BLOOD. RESP EVEN UNLABORED ON RA, PT DID NOT WEAR BIPAP T/O NIGHT. PER RT PT DID NOT NEED TO WEAR BIPAP. SATS >92%. PT DENIED ANY CP OR SOB. DENIED OTHER NEEDS. REPORTS NOT SLEEPING WELL HERE. CALL LIGHT IN REACH.
--- NOTE | 2019-04-11 07:30 | NUR ---
BEDSIDE REPORT REC'D FROM BALAJI RN. PT SITTING UP IN CHAIR AT BEDSIDE. DISCUSSED WITH PT TO HAVE BM IN BSC PLACED IN BR FOR PRIVACY BUT IN A LOCATION WHERE IT CAN BE ASSESSED AND DR NOTIFIED IF NEEDED. PT AGREED TO PLAN. HAD BM. MAROON GELATINOUS LIQUID STOOL. RELIEVED PTS FEARS OF ACTIVE BLEED VS POOLED BLOOD SITLL PASSING. WILL MEDICATE ACCORDING TO ORDERS AND PRN NEEDS. ASSESSMENT NOTED. CALL LIGHT AND BELONGINGS IN REACH.
[2019-04-11] MEDS ORDERED: ACET325 PO (11:10)
[2019-04-11] MEDS ORDERED: FUROSEMIDE (LASIX) PO (11:13)
[2019-04-11] MEDS ORDERED: ONDA4ODT MM (11:21)
[2019-04-11] MEDS ORDERED: EUTHYROX150 MCG PO (11:25)
--- NOTE | 2019-04-11 13:01 | NUR ---
PT C/O OF WHAT HE DESCRIBED PRETTY SIGNIFICANT RESTLESS LEGS TO THE POINT IT CAUSES INCREASED AGITATION. PT CURRENTLY REC'ING BLOOD UNABLE TO BE MOBILE HE IS AT HOME WITH THESE SYMPTOMS. FENTANYL AVAIL ON MED LIST. USED LOWEST DOSE ORDERED TO TAKE THE EDGE OFF AND ALSO PLACED SCD'S TO BLE'S. WILL CONTINUE TO MONITOR PRBC TRANSFUSION.
[2019-04-11 14:48] LABS: BASOPHILS ABSOLUTE AUTO 0.03 K/mm3 (0.00-0.23); BASOPHILS PERCENT AUTO 1 % (0-2); EOSINOPHILS PERCENT AUTO 8 % (0-6); Hematocrit 27.3 % (37.0-53.0); Hemoglobin 9.3 g/dL (13.5-17.5); IMMATURE GRAN ABSOLUTE AUTO 0.12 K/mm3 (0.00-0.10); IMMATURE GRAN PERCENT AUTO 2 % (0-1); LYMPHOCYTES ABSOLUTE AUTO 1.17 K/mm3 (0.84-5.20); LYMPHOCYTES PERCENT AUTO 19 % (21-46); MONOCYTES ABSOLUTE AUTO 0.66 K/mm3 (0.16-1.47); MONOCYTES PERCENT AUTO 11 % (4-13); Mean Corpuscular HGB 30.6 pg (26.0-34.0); Mean Corpuscular HGB Conc 34.1 g/dL (31.5-36.5); Mean Corpuscular Volume 90 fL (80-100); Mean Platelet Volume 10.4 fL (9.1-12.4); NEUTROPHILS ABSOLUTE AUTO 3.81 K/mm3 (1.96-9.15); NEUTROPHILS PERCENT AUTO 61 % (41-73); Platelet Count 193 K/mm3 (150-400); RDW Standard Deviation 48.7 fL (35.1-46.3); Red Blood Cell Count 3.04 M/mm3 (4.30-5.90); White Blood Cell Count 6.29 K/mm3 (4.00-11.30)
[2019-04-11 15:05] LABS: International Normalized Ratio 1.24; Prothrombin Time Results 12.9 Sec (9.7-11.5)
[2019-04-11 15:10] LABS: Anion Gap 7 mmol/L (6-16); Blood Urea Nitrogen 8 mg/dL (8-24); Bun/Creatinine Ratio 10.3 (12.0-20.0); CO2, Blood 24 mmol/L (21-32); Chloride, Blood 112 mmol/L (98-108); Creatinine, Blood 0.78 mg/dL (0.60-1.20); Glomerular Filtration Rate >60 (60-); Glucose, Blood 89 mg/dL (70-99); Potassium, Blood 3.7 mmol/L (3.5-5.5); Sodium, Blood 143 mmol/L (136-145)
--- NOTE | 2019-04-11 19:22 | NUR ---
DISCHARGE NOTE PT PATY UNIT OF PRBC WELL, NO COMPLICATIONS. ONLY "INCIDENT" WAS C/O OF RESTLESS LEGS. WHICH ACCORDING TO WHEN SHE RETURNED, IS VERY PROBLEMATIC AT HOME. SUGGESTED THEY BRING THIS UP [facility] SATURDAY'S F/U VISIT. BLOOD COMPLETED, VSS T/O, F/U BLOOD DRAW DONE, LASIX ADMINISTERED. IV'S DC'D INTACT. WENT OVER DISCHARGE INSTRUCTIONS AT LENGTH WITH BOTH PT AND SPOUSE. RECOMMENDED HOME BP DEVICE AND DISCUSSED POSSIBLE COMPLICATIONS AND EVENTS A RESULT OF NOT TESTING BP PRIOR TO HTN MEDS. PT ONLY HAD THE ONE MAROON STOOL TODAY. WAS HAPPY TO GET TO GO HOME. PT ESCORTED TO PT PICKUP/DROPOFF VIA WC BY THIS RN. DROVE PT HOME. DC'D WITH PENNIE THOMPSON, STABLE CONDITION WITH WRITTEN AND VERBAL INSTRUCTIONS.
== END 2019-04-11 15:51 | disposition home or self-care (01) | DRG 378 ==
LOC: ER 12:21 → PCU 12:22 → ICUE 17:12 → PCU 17:25 → ICUE 04-07 05:17 → PCU 04-10 14:32
PROVIDERS: Family Medicine; Internal Medicine; Nurse Practitioner Acute Care; Physician Assistant; Student in an Organized Health Care Education/Training Program; ADMIT Internal Medicine
PROC: B4151ZZ Fluoroscopy of Inferior Mesenteric Artery using Low Osmolar Contrast (ICD-10-PCS; 2019-04-08)
PROC: B41J1ZZ Fluoroscopy of Other Lower Arteries using Low Osmolar Contrast (ICD-10-PCS; 2019-04-08)
PROC: B4141ZZ Fluoroscopy of Superior Mesenteric Artery using Low Osmolar Contrast (ICD-10-PCS; 2019-04-08)
PROC: 0DJD8ZZ Inspection of Lower Intestinal Tract, Via Natural or Artificial Opening Endoscopic (ICD-10-PCS; principal; 2019-04-08 13:00)
PROC: 0DJ08ZZ Inspection of Upper Intestinal Tract, Via Natural or Artificial Opening Endoscopic (ICD-10-PCS; 2019-04-08 13:00)
PROC: 30233N1 Transfusion of Nonautologous Red Blood Cells into Peripheral Vein, Percutaneous Approach (ICD-10-PCS; 2019-04-09)
DX: K57.91 Diverticulosis of intestine, part unspecified, without perforation or abscess with bleeding (principal); D62 Acute posthemorrhagic anemia; F05 Delirium due to known physiological condition; Z79.01 Long term (current) use of anticoagulants; I48.0 Paroxysmal atrial fibrillation; E78.5 Hyperlipidemia, unspecified; L40.9 Psoriasis, unspecified; F32.9 Major depressive disorder, single episode, unspecified; K21.9 Gastro-esophageal reflux disease without esophagitis; I95.9 Hypotension, unspecified; E03.9 Hypothyroidism, unspecified; R45.1 Restlessness and agitation; D69.6 Thrombocytopenia, unspecified
CPT/HCPCS: 36245; 36246; 36415; 36430; 75726; 75774; 78278; 80048; 80053; 82947; 85014; 85018; 85025; 85610; 85730; 86850; 86900; 86901; 86920; 86923; 93005; 93010; 94660; 94762; 96360; 96361; 97110; 97161; 97165; 97530; 97535; 99152; 99153; 99285-25; A9270; A9560; C1751; C1769; C1887; C1894; J0171; J1644; J1940; J2060; J2250; J2704; J3010; J3480; J7030; J7050; J7120; P9016; P9059; Q9967

== ENCOUNTER 2019-07-22 03:47 | Observation (INO) | payer OTHER ==
[~2019-07-22] VITALS: Ht 172.7 cm; Wt 71.6 kg
[~2019-07-22 03:47] MED LIST changes: +ACET325 PO; +AMLO10/10; +COSENTYX P150 MG/1 M SC; +DILT120ERA PO; +DULO30 PO; +EUTHYROX150 MCG PO; +FUROSEMIDE (LASIX) PO; +K-Dur20 MEQ PO; +MELA3 PO; +ONDA4ODT MM; +SYNTHROID125 MC1 PO; +TRAMADOL HCL E100 M2 PO; +WARF5 PO
[2019-07-22 04:33] LABS: BASOPHILS ABSOLUTE AUTO 0.03 K/mm3 (0.00-0.23); BASOPHILS PERCENT AUTO 0 % (0-2); EOSINOPHILS ABSOLUTE AUTO 0.02 K/mm3 (0.00-0.68); EOSINOPHILS PERCENT AUTO 0 % (0-6); Hematocrit 32.3 % (37.0-53.0); IMMATURE GRAN ABSOLUTE AUTO 0.03 K/mm3 (0.00-0.10); IMMATURE GRAN PERCENT AUTO 0 % (0-1); LYMPHOCYTES ABSOLUTE AUTO 1.19 K/mm3 (0.84-5.20); LYMPHOCYTES PERCENT AUTO 16 % (21-46); MONOCYTES ABSOLUTE AUTO 0.87 K/mm3 (0.16-1.47); MONOCYTES PERCENT AUTO 12 % (4-13); Mean Corpuscular HGB 26.1 pg (26.0-34.0); Mean Corpuscular HGB Conc 34.1 g/dL (31.5-36.5); Mean Corpuscular Volume 77 fL (80-100); Mean Platelet Volume 9.8 fL (9.1-12.4); NEUTROPHILS PERCENT AUTO 71 % (41-73); Platelet Count 287 K/mm3 (150-400); RDW Coefficient Variation 16.2 % (11.7-14.2); RDW Standard Deviation 45.1 fL (35.1-46.3); Red Blood Cell Count 4.22 M/mm3 (4.30-5.90); White Blood Cell Count 7.34 K/mm3 (4.00-11.30)
[2019-07-22 04:52] LABS: Alanine Aminotransfer (ALT/SGP 23 U/L (12-78); Albumin, Blood 3.5 g/dL (3.4-5.0); Albumin/Globulin Ratio 0.9 (0.8-1.8); Alk Phos 73 U/L (50-136); Anion Gap 8 mmol/L (6-16); Aspartate Aminotrans (AST/SGOT 26 U/L (12-37); Bilirubin, Total 0.6 mg/dL (0.1-1.0); Blood Urea Nitrogen 9 mg/dL (8-24); Bun/Creatinine Ratio 16.2 (12.0-20.0); CO2, Blood 27 mmol/L (21-32); Calcium, Blood 8.7 mg/dL (8.5-10.1); Chloride, Blood 88 mmol/L (98-108); Creatinine, Blood 0.56 mg/dL (0.60-1.20); Glomerular Filtration Rate >60 (60-); Glucose, Blood 99 mg/dL (70-99); Potassium, Blood 2.9 mmol/L (3.5-5.5); Sodium, Blood 123 mmol/L (136-145); Total Protein, Blood 7.5 g/dL (6.4-8.2); Troponin I <0.015 ng/mL (0.000-0.040)
[2019-07-22] MEDS ORDERED: ATOR20 PO (04:56)
[2019-07-22] MEDS ORDERED: ELIQUIS5 MG PO (04:56)
[2019-07-22] MEDS ORDERED: Zoloft100 MG PO (04:57)
[2019-07-22] MEDS ORDERED: DULO30 PO (04:58)
[2019-07-22] MEDS ORDERED: SYNTHROID150 MCG PO (04:58)
[2019-07-22] MEDS ORDERED: Vitamin D2000 UNIT PO (05:00)
[2019-07-22 05:19] LABS: Source, Urine Clean Catch
[2019-07-22 05:26] LABS: Bilirubin, Urine Neg (Neg); Blood, Urine 1+ (Neg); Glucose Qualitative, Urine Neg (Neg); Ketones, Urine 2+ (Neg); Leukocyte Esterase, Urine Neg (Neg); Nitrite, Urine Neg (Neg); Protein, Urine Neg (Neg); Urobilinogen, Urine NORM (Normal)
[2019-07-22 05:39] LABS: Appearance, Urine Clear (Clear); Color, Urine Yellow (P-Yellow)
[2019-07-22 05:40] LABS: Bacteria Not Seen /hpf; Red Blood Cells, Urine 0-2 /hpf (0-2); Squamous Epithelial Cells Not Seen /hpf (Few); U Amphetamine Screen Not Detected; U Barbituate Screen Not Detected; U Benzodiazapine Screen Not Detected; U Buprenorphine Screen Not Detected; U Cannabinoids Screen Not Detected; U Cocaine Screen Not Detected; U Methadone Screen Not Detected; U Methamphetamine Screen Not Detected; U Opiates Screen Not Detected; U Oxycodone Screen Not Detected; U Phencyclidine Screen Not Detected; U Propoxyphene Screen Not Detected; White Blood Cells, Urine 0-2 /hpf (0-5)
--- NOTE | 2019-07-22 08:00 | NUR ---
PT A/O X3. DENIES PAIN. PLEASANT SITTING UP IN BED. TIRED FROM POOR NITE. H/R REG, NO MURMER NOTED. NO TELE. LUNGS CLEAR, RESP EASY, UNLABORED. ON R.A. BTX4 LAST BM YEST. WAS DOING COLON PREP FOR COLONOSCOPY TODAY. VOIDS URINAL AND SBA TO BATHROOM. SBA IN ROOM. EXPECTING TO VISIT LATER TODAY. BED IN LOW POSITION, CALL LITE IN REACH, CALLS APPROP.
--- NOTE | 2019-07-22 11:11 | NUR ---
CALLED. PENDING CONONOSCOPY. SCHED FOR TOMORROW IF CAN BE RELEASED. STATES DR BARBOUR MAY EVEN DO HERE?. WILL LIKE TO KEEP HIM ON CLEAR LIQUID DIET IF CAN. WILL DISCUSS WITH DR MELVIN WHEN SEE IN [place]. ADVISED PT TO HOLD LUNCH TEMPORARILLY.
[2019-07-22 12:39] LABS: Anion Gap 7 mmol/L (6-16); Blood Urea Nitrogen 10 mg/dL (8-24); Bun/Creatinine Ratio 16.3 (12.0-20.0); CO2, Blood 27 mmol/L (21-32); Calcium, Blood 9.1 mg/dL (8.5-10.1); Chloride, Blood 95 mmol/L (98-108); Creatinine, Blood 0.62 mg/dL (0.60-1.20); Glomerular Filtration Rate >60 (60-); Glucose, Blood 103 mg/dL (70-99); Potassium, Blood 3.2 mmol/L (3.5-5.5); Sodium, Blood 129 mmol/L (136-145)
--- NOTE | 2019-07-22 15:51 | NUR ---
DISCHARGE REVIEWED WITH PT. VERBALIZED UNDERRSTANDING OF MEDS AND INST. IV PULLED INTACT. NO TELE. PT WALKED TO DOOR WITH AIDE. AT 1550
== END 2019-07-22 16:02 | disposition home or self-care (01) ==
LOC: ER 03:47 → MEDS 03:48
PROVIDERS: Emergency Medicine; ADMIT Family Medicine
DX: G92 Toxic encephalopathy (principal); E87.1 Hypo-osmolality and hyponatremia; E87.6 Hypokalemia; D63.8 Anemia in other chronic diseases classified elsewhere; I10 Essential (primary) hypertension; F41.9 Anxiety disorder, unspecified; F32.9 Major depressive disorder, single episode, unspecified; I48.0 Paroxysmal atrial fibrillation; E89.0 Postprocedural hypothyroidism; K21.9 Gastro-esophageal reflux disease without esophagitis; E78.5 Hyperlipidemia, unspecified; R73.03 Prediabetes; L40.9 Psoriasis, unspecified; G47.00 Insomnia, unspecified; Z79.899 Other long term (current) drug therapy; Z79.01 Long term (current) use of anticoagulants; Z87.891 Personal history of nicotine dependence; Z88.8 Allergy status to other drugs, medicaments and biological substances
CPT/HCPCS: 36415; 70450; 80048; 80053; 81001; 84484; 85025; 93005; 93010; 99285-25; A9270-GY; G0378; J3480

== ENCOUNTER 2020-09-02 13:13 | Emergency (ER) | payer OTHER ==
[~2020-09-02] VITALS: Ht 172.7 cm; Wt 73.0 kg
[~2020-09-02 13:13] MED LIST changes: +ATOR20 PO; +ELIQUIS5 MG PO; +SYNTHROID150 MCG PO; +Vitamin D2000 UNIT PO; +Zoloft100 MG PO
[2020-09-02 15:07] LABS: BASOPHILS ABSOLUTE AUTO 0.01 K/mm3 (0.00-0.23); BASOPHILS PERCENT AUTO 0 % (0-2); EOSINOPHILS PERCENT AUTO 0 % (0-6); Hemoglobin 10.3 g/dL (13.5-17.5); IMMATURE GRAN ABSOLUTE AUTO 0.06 K/mm3 (0.00-0.10); IMMATURE GRAN PERCENT AUTO 1 % (0-1); LYMPHOCYTES ABSOLUTE AUTO 0.77 K/mm3 (0.84-5.20); LYMPHOCYTES PERCENT AUTO 7 % (21-46); MONOCYTES ABSOLUTE AUTO 1.69 K/mm3 (0.16-1.47); MONOCYTES PERCENT AUTO 16 % (4-13); Mean Corpuscular HGB 29.3 pg (26.0-34.0); Mean Corpuscular HGB Conc 34.3 g/dL (31.5-36.5); Mean Corpuscular Volume 86 fL (80-100); Mean Platelet Volume 10.7 fL (9.1-12.4); NEUTROPHILS PERCENT AUTO 77 % (41-73); Platelet Count 291 K/mm3 (150-400); RDW Coefficient Variation 15.9 % (11.7-14.2); RDW Standard Deviation 49.6 fL (35.1-46.3); Red Blood Cell Count 3.51 M/mm3 (4.30-5.90); White Blood Cell Count 10.93 K/mm3 (4.00-11.30)
[2020-09-02 15:27] LABS: Alanine Aminotransfer (ALT/SGP 24 U/L (12-78); Albumin/Globulin Ratio 0.7 (0.8-1.8); Alk Phos 59 U/L (50-136); Anion Gap 5 mmol/L (6-16); Aspartate Aminotrans (AST/SGOT 31 U/L (12-37); Bilirubin, Total 0.6 mg/dL (0.1-1.0); Blood Urea Nitrogen 15 mg/dL (8-24); Bun/Creatinine Ratio 17.9 (12.0-20.0); CO2, Blood 28 mmol/L (21-32); Calcium, Blood 8.7 mg/dL (8.5-10.1); Chloride, Blood 101 mmol/L (98-108); Creatinine, Blood 0.84 mg/dL (0.60-1.20); Globulin, Blood 4.1 g/dL (2.2-4.0); Glomerular Filtration Rate >60 (60-); Glucose, Blood 101 mg/dL (70-99); Potassium, Blood 3.8 mmol/L (3.5-5.5); Sodium, Blood 134 mmol/L (136-145); Total Protein, Blood 7.1 g/dL (6.4-8.2)
== END 2020-09-02 17:30 | disposition home or self-care (01) ==
LOC: ER 13:13
PROVIDERS: Physician Assistant
DX: M79.662 Pain in left lower leg (principal); Z88.8 Allergy status to other drugs, medicaments and biological substances; Z79.01 Long term (current) use of anticoagulants; Z79.899 Other long term (current) drug therapy
CPT/HCPCS: 36415; 73562-LT; 80053; 85025; 93971; 99284-25

== ENCOUNTER 2020-09-12 09:36 | Emergency (ER) | payer OTHER ==
[~2020-09-12] VITALS: Ht 172.7 cm; Wt 73.0 kg
[2020-09-12 11:05] LABS: BASOPHILS ABSOLUTE AUTO 0.07 K/mm3 (0.00-0.23); BASOPHILS PERCENT AUTO 1 % (0-2); EOSINOPHILS ABSOLUTE AUTO 0.21 K/mm3 (0.00-0.68); EOSINOPHILS PERCENT AUTO 2 % (0-6); Hematocrit 32.5 % (37.0-53.0); Hemoglobin 10.9 g/dL (13.5-17.5); IMMATURE GRAN ABSOLUTE AUTO 0.15 K/mm3 (0.00-0.10); IMMATURE GRAN PERCENT AUTO 2 % (0-1); LYMPHOCYTES ABSOLUTE AUTO 1.04 K/mm3 (0.84-5.20); LYMPHOCYTES PERCENT AUTO 11 % (21-46); MONOCYTES ABSOLUTE AUTO 0.96 K/mm3 (0.16-1.47); MONOCYTES PERCENT AUTO 10 % (4-13); Mean Corpuscular HGB 28.8 pg (26.0-34.0); Mean Corpuscular HGB Conc 33.5 g/dL (31.5-36.5); Mean Corpuscular Volume 86 fL (80-100); Mean Platelet Volume 8.9 fL (9.1-12.4); NEUTROPHILS ABSOLUTE AUTO 7.33 K/mm3 (1.96-9.15); NEUTROPHILS PERCENT AUTO 75 % (41-73); Platelet Count 602 K/mm3 (150-400); RDW Coefficient Variation 15.4 % (11.7-14.2); RDW Standard Deviation 47.8 fL (35.1-46.3); Red Blood Cell Count 3.78 M/mm3 (4.30-5.90); White Blood Cell Count 9.76 K/mm3 (4.00-11.30)
[2020-09-12] MEDS ORDERED: CEPH500 PO (11:42)
[2020-09-12] MEDS ORDERED: Percocet 5-3251 EACH PO (11:42)
== END 2020-09-12 12:00 | disposition home or self-care (01) ==
LOC: ER 09:36
PROVIDERS: Emergency Medicine
DX: L03.116 Cellulitis of left lower limb (principal); Z79.899 Other long term (current) drug therapy
CPT/HCPCS: 36415; 85025; 99283; A9270; A9270-GY

== ENCOUNTER → 2021-03-01 | Outpatient (CLI) | payer OTHER ==
[~2021-03-01] MED LIST changes: +CEPH500 PO; +Percocet 5-3251 EACH PO
[2021-03-01 20:29] LABS: BASOPHILS ABSOLUTE AUTO 0.07 K/mm3 (0.00-0.23); BASOPHILS PERCENT AUTO 1 % (0-2); EOSINOPHILS ABSOLUTE AUTO 0.27 K/mm3 (0.00-0.68); EOSINOPHILS PERCENT AUTO 5 % (0-6); Hematocrit 41.8 % (37.0-53.0); Hemoglobin 14.4 g/dL (13.5-17.5); IMMATURE GRAN ABSOLUTE AUTO 0.03 K/mm3 (0.00-0.10); IMMATURE GRAN PERCENT AUTO 1 % (0-1); LYMPHOCYTES ABSOLUTE AUTO 1.44 K/mm3 (0.84-5.20); LYMPHOCYTES PERCENT AUTO 24 % (21-46); MONOCYTES ABSOLUTE AUTO 0.71 K/mm3 (0.16-1.47); MONOCYTES PERCENT AUTO 12 % (4-13); Mean Corpuscular HGB 29.6 pg (26.0-34.0); Mean Corpuscular HGB Conc 34.4 g/dL (31.5-36.5); Mean Corpuscular Volume 86 fL (80-100); Mean Platelet Volume 9.5 fL (9.1-12.4); NEUTROPHILS ABSOLUTE AUTO 3.49 K/mm3 (1.96-9.15); NEUTROPHILS PERCENT AUTO 58 % (41-73); Platelet Count 349 K/mm3 (150-400); RDW Coefficient Variation 14.9 % (11.7-14.2); RDW Standard Deviation 47.4 fL (35.1-46.3); Red Blood Cell Count 4.86 M/mm3 (4.30-5.90); White Blood Cell Count 6.01 K/mm3 (4.00-11.30)
[2021-03-01 20:51] LABS: Alanine Aminotransfer (ALT/SGP 24 U/L (12-78); Alk Phos 76 U/L (50-136); Anion Gap 3 mmol/L (6-16); Aspartate Aminotrans (AST/SGOT 26 U/L (12-37); Bilirubin, Total 0.6 mg/dL (0.1-1.0); Blood Urea Nitrogen 14 mg/dL (8-24); Bun/Creatinine Ratio 16.8 (12.0-20.0); CO2, Blood 29 mmol/L (21-32); Calcium, Blood 9.3 mg/dL (8.5-10.1); Chloride, Blood 102 mmol/L (98-108); Creatinine, Blood 0.83 mg/dL (0.60-1.20); Globulin, Blood 4.2 g/dL (2.2-4.0); Glomerular Filtration Rate >60 (60-); Glucose, Blood 85 mg/dL (70-99); Potassium, Blood 3.4 mmol/L (3.5-5.5); Sodium, Blood 134 mmol/L (136-145); Total Protein, Blood 8.2 g/dL (6.4-8.2)
== END | disposition home or self-care (01) ==
LOC: LAB SHORT 18:29
PROVIDERS: Physician Assistant
DX: I10 Essential (primary) hypertension (principal); D64.9 Anemia, unspecified
CPT/HCPCS: 80053; 82728; 83540; 83550; 85025

== ENCOUNTER → 2021-05-25 | Outpatient (CLI) | payer OTHER ==
[2021-05-25 17:41] LABS: BASOPHILS ABSOLUTE AUTO 0.08 K/mm3 (0.00-0.23); BASOPHILS PERCENT AUTO 2 % (0-2); EOSINOPHILS ABSOLUTE AUTO 0.31 K/mm3 (0.00-0.68); EOSINOPHILS PERCENT AUTO 6 % (0-6); Hematocrit 43.3 % (37.0-53.0); Hemoglobin 14.1 g/dL (13.5-17.5); IMMATURE GRAN ABSOLUTE AUTO 0.03 K/mm3 (0.00-0.10); IMMATURE GRAN PERCENT AUTO 1 % (0-1); LYMPHOCYTES ABSOLUTE AUTO 1.32 K/mm3 (0.84-5.20); LYMPHOCYTES PERCENT AUTO 25 % (21-46); MONOCYTES ABSOLUTE AUTO 0.76 K/mm3 (0.16-1.47); MONOCYTES PERCENT AUTO 14 % (4-13); Mean Corpuscular HGB 29.2 pg (26.0-34.0); Mean Corpuscular HGB Conc 32.6 g/dL (31.5-36.5); Mean Corpuscular Volume 90 fL (80-100); Mean Platelet Volume 9.9 fL (9.1-12.4); NEUTROPHILS ABSOLUTE AUTO 2.79 K/mm3 (1.96-9.15); NEUTROPHILS PERCENT AUTO 53 % (41-73); Platelet Count 341 K/mm3 (150-400); RDW Coefficient Variation 14.2 % (11.7-14.2); RDW Standard Deviation 46.8 fL (35.1-46.3); Red Blood Cell Count 4.83 M/mm3 (4.30-5.90); White Blood Cell Count 5.29 K/mm3 (4.00-11.30)
[2021-05-25 17:56] LABS: Alanine Aminotransfer (ALT/SGP 29 U/L (12-78); Albumin, Blood 3.8 g/dL (3.4-5.0); Albumin/Globulin Ratio 1.1 (0.8-1.8); Alk Phos 76 U/L (50-136); Anion Gap 4 mmol/L (6-16); Aspartate Aminotrans (AST/SGOT 29 U/L (12-37); Bilirubin, Total 0.4 mg/dL (0.1-1.0); Blood Urea Nitrogen 14 mg/dL (8-24); Bun/Creatinine Ratio 17.3 (12.0-20.0); CHOL/HDL RATIO 2.9; CO2, Blood 29 mmol/L (21-32); Chloride, Blood 99 mmol/L (98-108); Cholesterol 175 mg/dL (50-200); Creatinine, Blood 0.81 mg/dL (0.60-1.20); Free Thyroxine 0.67 ng/dL (0.70-1.60); Globulin, Blood 3.6 g/dL (2.2-4.0); Glomerular Filtration Rate >60 (60-); Glucose, Blood 110 mg/dL (70-99); HDL Cholesterol 60 mg/dL (>39); LDL/HDL RATIO 1.7; Low Density Lipoprotein Chol 105 mg/dL (0-110); Potassium, Blood 4.2 mmol/L (3.5-5.5); Sodium, Blood 132 mmol/L (136-145); Total Protein, Blood 7.4 g/dL (6.4-8.2); Triglycerides 51 mg/dL (30-160); Very Low Density Lipoprot Chol 10 mg/dL (6-32)
== END | disposition home or self-care (01) ==
LOC: LAB SHORT 16:13 → LAB 16:13
PROVIDERS: Physician Assistant
DX: Z11.59 Encounter for screening for other viral diseases (principal); I10 Essential (primary) hypertension; E03.9 Hypothyroidism, unspecified; E78.00 Pure hypercholesterolemia, unspecified; R39.12 Poor urinary stream
CPT/HCPCS: 80053; 80061; 84153; 84439; 84443; 85025; 86803